=== PATIENT | female | born 1990 | race Caucasian/White ===

== ENCOUNTER 2016-08-08 13:38 | Emergency (ER) | payer SELFPAY ==
[~2016-08-08] VITALS: Ht 157.5 cm; Wt 104.3 kg
[2016-08-08 14:06] LABS: HEMATOCRIT 37.5 % (36.0-46.0); MCH 26.6 PG (29.0-34.0); MCHC 31.7 G/DL (30.0-36.0); MCV 83.9 FL (83-99); MEAN PLAT.VOLUME 9.5 uM^3 (9.5-12.4); PLATELET COUNT 501 K/uL (156-360); RBC DIS.WIDTH-CV 14.5 % (11.8-14.6); RBC DIS.WIDTH-SD 44.4 % (39-53); RED BLOOD COUNT 4.47 M/uL (3.80-5.20); WHITE BLOOD COUNT 9.5 K/uL (4.1-10.2)
[2016-08-08 14:16] LABS: CHLORIDE 104 mEq/L (99-109); POTASSIUM 4.2 mEq/L (3.7-5.4); SODIUM 139 mEq/L (136-147)
[2016-08-08 14:18] LABS: GLUCOSE 98 mg/dL (70-99)
[2016-08-08 14:19] LABS: ANION GAP 7 MEQ/L (2-14)
[2016-08-08 14:23] LABS: UREA NITROGEN (BUN) 7 mg/dL (9-23)
[2016-08-08 14:28] LABS: GFR ESTIMATE (CALCULATED) > 59 mL/min/
[2016-08-08] MEDS ORDERED: ZITHROMAX Z-PA250 MG PO (18:09)
[2016-08-08] MEDS ORDERED: PREDNISONE10 M1 PO (18:09)
[2016-08-08] MEDS ORDERED: CHERATUSSIN AC473 ML PO (18:09)
[2016-08-08 18:35] VITALS: BP 125/88
== END 2016-08-08 18:36 | disposition home or self-care (01) ==
LOC: EME 13:38 → RME 13:38
DX: J06.9 Acute upper respiratory infection, unspecified (principal); F17.200 Nicotine dependence, unspecified, uncomplicated
CPT/HCPCS: 71020; 80048; 85027; 93005; 94640; 99281; 99284; J2930

== ENCOUNTER 2016-08-11 00:52 | Emergency (ER) | payer SELFPAY ==
[~2016-08-11] VITALS: Ht 154.9 cm; Wt 103.0 kg
[~2016-08-11 00:52] MED LIST: CHERATUSSIN AC473 ML PO; PREDNISONE10 M1 PO; ZITHROMAX Z-PA250 MG PO
[2016-08-11 00:54] VITALS: BP 146/96
[2016-08-11] MEDS ORDERED: NORCO 5/3251 TABLET PO (03:38)
== END 2016-08-11 03:42 | disposition home or self-care (01) ==
LOC: EME 00:52
PROC: 2W3QX1Z Immobilization of Right Lower Leg using Splint (ICD-10-PCS; principal; 2016-08-11)
DX: S92.351A Displaced fracture of fifth metatarsal bone, right foot, initial encounter for closed fracture (principal); M25.571 Pain in right ankle and joints of right foot; X50.1XXA Overexertion from prolonged static or awkward postures, initial encounter; Y92.003 Bedroom of unspecified non-institutional (private) residence as the place of occurrence of the external cause; F17.200 Nicotine dependence, unspecified, uncomplicated
CPT/HCPCS: 73610; 73630; 99281; 99284